=== PATIENT | male | born 1955 | race Caucasian/White ===

== ENCOUNTER 2018-12-05 22:21 | Inpatient (IN) | payer SELFPAY ==
[~2018-12-05] VITALS: Ht 172.7 cm; Wt 62.6 kg
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
[2018-12-05] MEDS ORDERED: ALBUTEROL/IPRATROPIUM 3 ML NEB NEB ONE (22:25)
[2018-12-05] MEDS ORDERED: methylPREDNIS SUCC 125 MG/2ML IVP ONE (22:25)
[2018-12-05 22:43] LABS: PLATELET COUNT, AUTOMATED 406 K/uL (150-450)
[2018-12-05] MEDS ORDERED: ALBUTEROL 2.5 MG/3 ML NEB NEB ONE (23:05)
[2018-12-05] MEDS ORDERED: BENZONATATE 100 MG CAP PO ONE (23:05)
--- NOTE | 2018-12-05 23:41 | RADIOLOGY IMAGING REPORT ---
FACILITY: [facility] PATIENT NAME: Tommy Kan : 1955 MR: [id number] V: [id number] EXAM DATE: ORDERING PHYSICIAN: CRISTINA COOK TECHNOLOGIST: Location: [facility] Patient: Tommy Kan : 1955 Visit/Account:[id number] Date of Sevice: 12/05/2018 EXAMINATION: Chest radiograph HISTORY: Cough, shortness of breath COMPARISON: None. FINDINGS: 2 frontal views obtained. Lines/tubes: None. Cardiomediastinal silhouette: Normal. Lungs/pleura: Mild lower lung bilateral central groundglass opacification. Suggestion of interlobula r septal thickening in the bilateral mid to lower lungs. Bony structures/chest wall: No significant abnormality. IMPRESSION: Nonspecific lower lung bilateral mild groundglass opacification with suggestion of bilateral interlob ular septal thickening. These findings may reflect mild pulmonary edema. These findings could alterna tively represent an atypical infectious process such as a viral pneumonia. Report Dictated By: Timmy Sanders MD at 12/05/2018 11:36 PM Report E-Signed By: Timmy Sanders MD at 12/05/2018 11:38 PM WSN:[id number]
[2018-12-05] MEDS ORDERED: IOPAMIDOL 76% 50 ML INFUS BTL 100 ML ONE (23:55)
[2018-12-05] MEDS ORDERED: NS(*) 0.9% 50 ML BAG 50 ML ONE (23:55)
--- NOTE | 2018-12-06 01:21 | EKG ---
FACILITY: [facility] - [place] PATIENT NAME: KARINE DELGADO : [id number] MR: [id number] V: [id number] EXAM DATE: ORDERING PHYSICIAN: CRISTINA COOK TECHNOLOGIST: VINICIUS Cordoba Reason : Blood Pressure : / mmHG Vent. Rate : 119 BPM Atrial Rate : 119 BPM P-R Int : 114 ms QRS Dur : 090 ms QT Int : 318 ms P-R-T Axes : 086 061 079 degrees QTc Int : 447 ms Sinus tachycardia Possible biatrial enlargement No previous ECGs available Confirmed by WYATT JOHNSON ([id number]) on 12/06/2018 3:11:33 AM Referred By: Confirmed By:WYATT JOHNSON
--- NOTE | 2018-12-06 01:47 | RADIOLOGY IMAGING REPORT ---
FACILITY: [facility] - [place] PATIENT NAME: Tommy Kan : 1955 MR: [id number] V: [id number] EXAM DATE: ORDERING PHYSICIAN: CRISTINA COOK TECHNOLOGIST: Location: [facility] Patient: Tommy Kan : 1955 Visit/Account:[id number] Date of Sevice: 12/05/2018 CT angiogram of the chest: Indication: Dyspnea. Elevated d-dimer. Technique: Helical CT was performed through the chest following IV contrast enhancement with 75 cc of Isovue 370. Multiplanar reconstructions and MIP images are reviewed. One of the following dose optimization techniques was utilized in the performance of this exam: Autom ated exposure control; adjustment of the mA and/or kV according to the patient's size; or use of an i terative reconstruction technique. Specific details can be referenced in the facility's radiology CT exam operational policy. Comparison: Plain radiographs of the chest from 12/05/2018. Pulmonary arteries: There is uniform contrast enhancement. There are no signs of pulmonary emboli. Aorta and great vessels: There is uniform contrast enhancement. There are no signs of dissection, ane urysm, or significant atherosclerosis. Heart and pericardial soft tissues: Unremarkable. Mediastinal soft tissues: A few small calcified lymph nodes are present in the left hilum, compatible with chronic granulomatous disease. There are no signs of mediastinal mass or fluid. There appears t o be a small hiatal hernia. Lung beltran: There are diffuse changes of emphysema, with upper lobe predominance. Small peripheral o pacities are present in both lower lobes. The appearance is nonspecific and may represent acute infla mmation or chronic fibrosis. Pleural spaces: No evidence of effusion, focal pleural thickening, calcification, or pneumothorax. Skeletal structures: There is moderate degenerative disc disease and osteoarthritis in the thoracic s pine. There are severe degenerative changes in the lower cervical spine. Upper abdomen: Unremarkable. IMPRESSION: No evidence of pulmonary emboli. There are diffuse emphysematous changes in both lungs. T here are small nonspecific parenchymal opacities at both bases, which could represent acute inflammat ion or chronic fibrosis. Report Dictated By: David Chavez MD at 12/06/2018 1:32 AM Report E-Signed By: David Chavez MD at 12/06/2018 1:42 AM WSN:[id number]
[2018-12-06] MEDS ORDERED: predniSONE 20 MG TAB PO ONE (02:20)
[2018-12-06] MEDS ORDERED: ALBUTEROL 8 GM INHALER INH ONE (02:20)
[2018-12-06] MEDS ORDERED: BENZONATATE 100 MG CAP PO ONE (02:20)
[2018-12-06] MEDS ORDERED: BENZ100C4 PO (02:25)
[2018-12-06] MEDS ORDERED: ALB6.7R INH (02:25)
[2018-12-06] MEDS ORDERED: PRED20TA6 PO (02:25)
[2018-12-06] MEDS ORDERED: ROBC PO (02:25)
[2018-12-06 03:47] VITALS: BP 120/103
[2018-12-06] MEDS ORDERED: CETI10CA8 PO (03:52)
[2018-12-06] MEDS ORDERED: LISI-362 PO (03:53)
[2018-12-06] MEDS ORDERED: LEVOFLOXACIN/D5W 750 MG/150 ML 150 ML IVPB SCH (04:45)
[2018-12-06] MEDS ORDERED: ACETAMINOPHEN 325 MG TAB PO PRN (04:45)
[2018-12-06] MEDS ORDERED: NS(*) 0.9% 1000 ML BAG 1,000 ML IV PRN (04:45)
[2018-12-06] MEDS ORDERED: ALBUTEROL 2.5 MG/3 ML NEB NEB PRN (04:45)
[2018-12-06] MEDS: ALBUTEROL/IPRATROPIUM 3 ML NEB NEB SCH ×4 (05:09→17:01)
--- NOTE | 2018-12-06 05:11 | History & Physical ---
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 He reports onset of cough, wheezing, dyspnea over the past 24 hours. He drove from [facility] to [place], [place] today. Upon arriving in [place] he noted significant increase in his symptoms, especially dyspnea and intolerance of activities. He denied any CP or palpitations. He did not have any leg swelling or pain. He was evaluated in the [facility] ER and found to be hypoxic with room air oxygen saturations in 75% range. His WBC count is slightly elevated. His d-dimer is also elevated. His CT pulmonary angiogram is negative for PE, but did show emphysematous changes and possible acute inflammatory/bronchitis findings. His influenza screening is negative. He was recommended for admission. History Problems: (1) HTN (hypertension) Status: Chronic (2) Cerebral palsy Status: Chronic (3) Seasonal allergies Status: Chronic (4) Smoking Status: Chronic Comment: Quit 6 months ago. Home Meds Active Scripts Guaifenesin/Codeine (GUAIFENESIN-CODEINE SYRUP) 5 Ml Syrp, 5 ML PO Q6H PRN for COUGH, #120 ML 0 Refills Prov:CRISTINA COOK MD 12/06/18 Benzonatate 100 Mg Cap (TESSALON PERLE 100 MG CAP) 100 Mg Capsule, 100 MG PO TID PRN for COUGH, #15 CAP 0 Refills Prov:CRISTINA COOK MD 12/06/18 Prednisone (PREDNISONE) 20 Mg Tablet, 60 MG PO QDAY, #12 TAB 0 Refills Prov:CRISTINA COOK MD 12/06/18 Albuterol Sulfate (PROVENTIL HFA) 6.7 Gm Inh, 2 PUFF INH Q4H PRN for SHORTNESS OF BREATH, #1 INH 0 Refills Prov:CRISTINA COOK MD 12/06/18 Reported Medications Lisinopril (LISINOPRIL) 10 Mg Tablet, 10 MG PO QDAY, TAB 12/06/18 Cetirizine Hcl (ZYRTEC) 10 Mg Capsule, 10 MG PO QDAY, CAPSULE 12/06/18 Allergies: Coded Allergies: No Known Drug Allergies (Unverified , 12/06/18) Other Social/Family 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 He reports his primary relatives were all healthy. Hx Smoking: Yes (quick smoking 6 months ago) Smoking Status: Former Smoker (quit 6 months ago) Exposure to Second Hand Smoke?: Yes Hx Alcohol Use: No Hx Substance Use Disorder: No History of IV Drug Use: No Review of Systems Constitutional: No Fever, No Chills Neurological: No Syncope, No Confusion Eyes: No Vision Change, No Loss of Vision ENT: Sinus Congestion; No Hearing Loss Cardiovascular: No Chest Pain, No Palpitations Respiratory: Shortness of Breath, Cough, Wheezing Gastrointestinal: No Nausea, No Vomiting, No Diarrhea, No Hematemesis, No Hematochezia, No Melena, No Abdominal Pain Genitourinary: No Dysuria, No Hematuria Exam Vital Signs Vital Signs Date Time Temp Pulse Resp B/P (MAP) Pulse Ox O2 Delivery O2 Flow Rate FiO2 12/06/18 04:35 75 12/06/18 03:47 91 20 120/103 (109) Nasal Cannula 5.0 General Appearance: Alert, Awake Neuro: Other (some increased tone in all of his extremities/he also has resting tremor and some choreiform type movements with his trunk) Eyes: PERRLA ENT: Oropharynx Clear Neck: No Masses Cardiovascular: Regular Rate and Rhythm, No Edema, No JVD Respiratory: Other (scattered rhonchi with soft expiratory wheezes bilaterally) Chest: No Tenderness GI: Abd Soft and Non-Tender : No CVA Tenderness Extremities: Warm, Perfused Psych: Alert & Oriented X3 Medical Decision Making Data Points Result Diagram: 12/05/18220412/05/182204 Item Value Date Time Albumin 4.2 g/dl 12/05/182204 Total Protein 7.5 g/dl 12/05/182204 Troponin I < 0.012 ng/ml 12/05/182204 Alkaline Phosphatase 89 U/L 12/05/182204 Alanine Aminotransferase (ALT/SGPT) 21 U/L 12/05/182204 Aspartate Amino Transf (AST/SGOT) 26 U/L 12/05/182204 Total Bilirubin 0.3 mg/dl 12/05/182204 Calcium Level 9.1 mg/dl 12/05/182204 D-Dimer Quantitative (PE/DVT) 4.93 ug/ml H 12/05/182204 Influenza Virus Type B (PCR) Negative 12/05/182307 Influenza Virus Type A (PCR) Negative 12/05/182307 EKG / Imaging EKG Interpretation PATIENT NAME: TOMMY DELGADO : [id number] MR: [id number] V: [id number] EXAM DATE: ORDERING PHYSICIAN: CRISTINA COOK TECHNOLOGIST: PANTIER Test Reason : Blood Pressure : / mmHG Vent. Rate : 119 BPM Atrial Rate : 119 BPM P-R Int : 114 ms QRS Dur : 090 ms QT Int : 318 ms P-R-T Axes : 086 061 079 degrees QTc Int : 447 ms Sinus tachycardia Possible biatrial enlargement No previous ECGs available Confirmed by WYATT JOHNSON ([id number]) on 12/06/2018 3:11:33 AM Referred By: Confirmed By:WYATT JOHNSON Imaging PATIENT NAME: Tommy Delgado : 1955 MR: [id number] V: [id number] EXAM DATE: [id number] ORDERING PHYSICIAN: CRISTINA COOK TECHNOLOGIST: Location: [facility] [place] Patient: Tommy Delgado : 1955 Visit/Account:[id number] Date of Sevice: 12/05/2018 CT angiogram of the chest: Indication: Dyspnea. Elevated d-dimer. Technique: Helical CT was performed through the chest following IV contrast enhancement with 75 cc of Isovue 370. Multiplanar reconstructions and MIP images are reviewed. One of the following dose optimization techniques was utilized in the performance of this exam: Automated exposure control; adjustment of the mA and/or kV according to the patient's size; or use of an iterative reconstruction technique. Specific details can be referenced in the facility's radiology CT exam operational policy. Comparison: Plain radiographs of the chest from 12/05/2018. Pulmonary arteries: There is uniform contrast enhancement. There are no signs of pulmonary emboli. Aorta and great vessels: There is uniform contrast enhancement. There are no signs of dissection, aneurysm, or significant atherosclerosis. Heart and pericardial soft tissues: Unremarkable. Mediastinal soft tissues: A few small calcified lymph nodes are present in the left hilum, compatible with chronic granulomatous disease. There are no signs of mediastinal mass or fluid. There appears to be a small hiatal hernia. Lung beltran: There are diffuse changes of emphysema, with upper lobe predominance. Small peripheral opacities are present in both lower lobes. The appearance is nonspecific and may represent acute inflammation or chronic fibrosis. Pleural spaces: No evidence of effusion, focal pleural thickening, calcification, or pneumothorax. Skeletal structures: There is moderate degenerative disc disease and osteoarthritis in the thoracic spine. There are severe degenerative changes in the lower cervical spine. Upper abdomen: Unremarkable. IMPRESSION: No evidence of pulmonary emboli. There are diffuse emphysematous changes in both lungs. There are small nonspecific parenchymal opacities at both bases, which could represent acute inflammation or chronic fibrosis. Report Dictated By: David Chavez MD at 12/06/2018 1:32 AM Report E-Signed By: David Chavez MD at 12/06/2018 1:42 AM WSN:[id number] Assessment and Plan Problems: (1) Hypoxia Status: Acute Assessment & Plan: It appears he has rather significant underlying COPD/emphysema, which has not been diagnosed up to this point. Almost certainly due to his history of smoking. He is quite hypoxic and requiring 5L supplemental oxygen. The altitude in [place], [place] ([address]) has exacerbated this as well. Will place on IV antibiotics, steroids and give respiratory treatments/supplemental oxygen. 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 (2) Bronchitis Status: Acute Assessment & Plan: Will cover with IV Levaquin 750mg daily. (3) COPD (chronic obstructive pulmonary disease) Status: Chronic Assessment & Plan: Emphysematous changes seen on CT scan. Almost certainly due to smoking history. He will be placed on IV Solu-Medrol, DuoNeb, and albuterol. He will also be given supplemental oxygen as needed. (4) HTN (hypertension) Status: Chronic Assessment & Plan: He has been on lisinopril up to this point. His creatinine is slightly elevated. Will hold the lisinopril and watch his BPs - resume therapy as needed. Watch lab as well. Venous Thromboembolism Antithrombotics Is Pt On Any Antithrombotics?: Yes Exam Sepsis Risk: No Definite Risk WYATT JOHNSON MD Dec 06, 2018 05:11
[2018-12-06 06:54] VITALS: BP 118/75
[2018-12-06 07:06] LABS: PLATELET COUNT, AUTOMATED 291 K/uL (150-450)
[2018-12-06] MEDS: ENOXAPARIN 40 MG/0.4ML SYR SC SCH (09:00)
[2018-12-06] MEDS: methylPREDNIS SUCC 125 MG/2ML IVP SCH ×2 (09:25→17:21)
--- NOTE | 2018-12-06 09:54 | Hospitalist Progress Note ---
Subjective Progress Notes Subjective He was admitted with hypoxia. He reports much improvement in his symptoms this morning. However, he is still requiring 4-5L of oxygen. Patient Complains of: Cardiovascular: No: Chest Pain Respiratory: No: Shortness of Breath Physical Exam Vital Signs Date Time Temp Pulse Resp B/P (MAP) Pulse Ox O2 Delivery O2 Flow Rate FiO2 12/06/18 09:16 91 Nasal Cannula 3.5 12/06/18 09:16 112 18 12/06/18 06:54 98.5 118/75 (89) General Appearance: Alert, Awake, No Acute Distress, Afebrile Neuro: No Gross deficits Cardiovascular: Regular Rate and Rhythm Respiratory: No Respiratory Distress, Other (mild expiratory wheezes present) GI: Soft and Non-Tender Extremities: Warm, Perfused; No Edema Psych: Alert & Oriented X3, Appropriate Mood & Affect Result Diagram: 12/06/1859 12/06/1859 Assessment and Plan Problems: (1) Hypoxia Status: Acute Assessment & Plan: It appears he has rather significant underlying COPD/emphysema, which has not been diagnosed up to this point. Almost certainly due to his history of smoking. He is quite hypoxic and requiring 5L supplemental oxygen. The altitude in [place], [place] ([address]) has exacerbated this as well. Will place on IV antibiotics, steroids and give respiratory treatments/supplemental oxygen. 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 (2) Bronchitis Status: Acute Assessment & Plan: Will cover with IV Levaquin 750mg daily. (3) COPD (chronic obstructive pulmonary disease) Status: Chronic Assessment & Plan: Emphysematous changes seen on CT scan. Almost certainly due to smoking history. He will be placed on IV Solu-Medrol, DuoNeb, and albuterol. He will also be given supplemental oxygen as needed. (4) HTN (hypertension) Status: Chronic Assessment & Plan: He has been on lisinopril up to this point. His creatinine was slightly elevated. Will hold the lisinopril and watch his BPs - resume therapy as needed. Watch lab as well. (5) Acute kidney injury Status: Acute Assessment & Plan: His creatinine was 1.3 upon admission. He was given IV hydration overnight. His creatinine has improved at 0.9 this morning. Exam Sepsis Risk: No Definite Risk Problem Qualifiers (1) HTN (hypertension): Hypertension type: essential hypertension Qualified Codes: I10 - Essential (primary) hypertension THELMA CHILDERS Dec 06, 2018 09:54
[2018-12-06 10:26] VITALS: Ht 172.7 cm; Wt 62.6 kg
[2018-12-06 10:57] VITALS: BP 111/67
[2018-12-06 14:40] VITALS: BP 112/69
[2018-12-06] MEDS ORDERED: LISI-351 PO (15:18)
[2018-12-06 18:43] VITALS: BP 107/55
[2018-12-07] MEDS: methylPREDNIS SUCC 125 MG/2ML IVP SCH ×2 (00:40→09:03)
[2018-12-07 03:31] VITALS: BP 102/61
[2018-12-07] MEDS: ALBUTEROL/IPRATROPIUM 3 ML NEB NEB SCH ×2 (05:48→09:27)
[2018-12-07] MEDS ORDERED: LEVOFLOXACIN/D5W 750 MG/150 ML 150 ML IVPB SCH (06:00)
[2018-12-07 07:37] VITALS: BP 113/79
[2018-12-07] MEDS ORDERED: PRED20TA6 PO (07:52)
[2018-12-07] MEDS ORDERED: LEVO750T27 PO (07:52)
[2018-12-07] MEDS: ENOXAPARIN 40 MG/0.4ML SYR SC SCH (09:00)
--- NOTE | 2018-12-07 09:48 | Hospitalist Depart ---
Discharge Summary Reason for Hosp/Final Diag: (1) Hypoxia Status: Acute Hospital Course & Plan: It appears he has rather significant underlying COPD/emphysema, which has not been diagnosed up to this point. Almost certainly due to his history of smoking. He was quite hypoxic and requiring 5L supplemental oxygen. Now he is on RA keeping saturations >88%. (2) Bronchitis Status: Acute Hospital Course & Plan: He presented with a cough and hypoxia. He was started on IV Levofloxacin and methylprednisolone. His cough is improving and the hypoxia resolved. He will go home on prednisone and oral levofloxacin. (3) COPD (chronic obstructive pulmonary disease) Status: Chronic Hospital Course & Plan: Emphysematous changes seen on CT scan. Almost certainly due to smoking history. See above. (4) HTN (hypertension) Status: Chronic Hospital Course & Plan: His creatinine was slightly elevated, which has improved with holding lisinopril/hctz. BP wnl. It can be restarted tomorrow. (5) Acute kidney injury Status: Resolved Hospital Course & Plan: His creatinine was 1.3 upon admission. See above. His creatinine has improved at 0.9. Departure Weight (Pounds): 138 Result Diagram: 12/06/1859 12/06/18658 Item Value Date Time Creatinine 1.30 mg/dl H 12/05/182204 Creatinine 0.90 mg/dl 12/06/18658 Blood Urea Nitrogen 28 mg/dl H 12/06/18658 Blood Urea Nitrogen 27 mg/dl H 12/05/182204 Sodium Level 138 mmol/L 12/05/182204 Sodium Level 133 mmol/L L 12/06/18658 Potassium Level 4.2 mmol/L 12/06/18658 Potassium Level 4.0 mmol/L 12/05/182204 Carbon Dioxide Level 31 mmol/L H 12/05/182204 Carbon Dioxide Level 27 mmol/L 12/06/18658 Troponin I < 0.012 ng/ml 12/05/182204 Total Bilirubin 0.3 mg/dl 12/05/182204 Aspartate Amino Transf (AST/SGOT) 26 U/L 12/05/182204 Alanine Aminotransferase (ALT/SGPT) 21 U/L 12/05/182204 Alkaline Phosphatase 89 U/L 12/05/182204 Total Bilirubin 0.3 mg/dl 12/06/18658 Aspartate Amino Transf (AST/SGOT) 20 U/L 12/06/18658 Alanine Aminotransferase (ALT/SGPT) 24 U/L 12/06/18658 Alkaline Phosphatase 63 U/L 12/06/18658 Neutrophils (%) (Auto) 80.3 % H 12/05/182204 Neutrophils (%) (Auto) 96.6 % H 12/06/18658 Lymphocytes (%) (Auto) 12.5 % L 12/05/182204 Lymphocytes (%) (Auto) 1.5 % L 12/06/18658 Influenza Virus Type A (PCR) Negative 12/05/182307 Influenza Virus Type B (PCR) Negative 12/05/182307 D-Dimer Quantitative (PE/DVT) 4.93 ug/ml H 12/05/182204 Imaging Chest CTA - No evidence of pulmonary emboli. There are diffuse emphysematous changes in both lungs. There are small nonspecific parenchymal opacities at both bases, which could represent acute inflammation or chronic fibrosis. CXR - Nonspecific lower lung bilateral mild groundglass opacification with suggestion of bilateral interlobular septal thickening. These findings may reflect mild pulmonary edema. These findings could alternatively represent an atypical infectious process such as a viral pneumonia. EKG Vent. Rate : 119 BPM Atrial Rate : 119 BPM P-R Int : 114 ms QRS Dur : 090 ms QT Int : 318 ms P-R-T Axes : 086 061 079 degrees QTc Int : 447 ms Sinus tachycardia Possible biatrial enlargement No previous ECGs available Confirmed by WYATT JOHNSON ([id number]) on 12/06/2018 3:11:33 AM Condition: Improved Discharge: Home Discharge Instructions Home Meds Active Scripts Prednisone (PREDNISONE) 20 Mg Tablet, 40 MG PO QDAY, #10 TAB Prov:JESSICA HERNANDEZ MD 12/07/18 Levofloxacin 750 Mg Tab (LEVOFLOXACIN 750 MG TAB) 750 Mg Tablet, 750 MG PO DA LOYDA, #3 TAB Prov:JESSICA HERNANDEZ MD 12/07/18 Guaifenesin/Codeine (GUAIFENESIN-CODEINE SYRUP) 5 Ml Syrp, 5 ML PO Q6H PRN for COUGH, #120 ML 0 Refills Prov:CRISTINA COOK MD 12/06/18 Benzonatate 100 Mg Cap (TESSALON PERLE 100 MG CAP) 100 Mg Capsule, 100 MG PO TID PRN for COUGH, #15 CAP 0 Refills Prov:CRISTINA COOK MD 12/06/18 Albuterol Sulfate (PROVENTIL HFA) 6.7 Gm Inh, 2 PUFF INH Q4H PRN for SHORTNESS OF BREATH, #1 INH 0 Refills Prov:CRISTINA COOK MD 12/06/18 Reported Medications Lisinopril/Hydrochlorothiazide (LISINOPRIL-HCTZ 10-12.5 MG TAB) 1 Each Tablet, 1 EACH PO QDAY 12/06/18 Cetirizine Hcl (ZYRTEC) 10 Mg Capsule, 10 MG PO QDAY, CAPSULE 12/06/18 Discontinued Reported Medications Lisinopril (LISINOPRIL) 10 Mg Tablet, 10 MG PO QDAY, TAB 12/06/18 Discontinued Scripts Prednisone (PREDNISONE) 20 Mg Tablet, 60 MG PO QDAY, #12 TAB 0 Refills Prov:CRISTINA COOK MD 12/06/18 Diet: Regular Activity: As Tolerated Special Instructions: Go to the ER for fevers, SOB. Venous Thromboembolism Antithrombotics Is Pt On Any Antithrombotics?: Yes Problem Qualifiers (1) HTN (hypertension): Hypertension type: essential hypertension Qualified Codes: I10 - Essential (primary) hypertension JESSICA HERNANDEZ MD Dec 07, 2018 09:47
[2018-12-07] MEDS ORDERED: ALB6.7R INH (10:26)
[2018-12-07] MEDS ORDERED: BENZ100C4 PO (10:26)
== END 2018-12-07 10:35 | disposition home or self-care (01) | DRG 191 ==
LOC: ER 22:23 → MED 12-06 03:22
PROVIDERS: ADMIT Internal Medicine; ATTEND Internal Medicine
DX: J42 Unspecified chronic bronchitis (principal); N17.9 Acute kidney failure, unspecified; I10 Essential (primary) hypertension; R09.02 Hypoxemia; G80.9 Cerebral palsy, unspecified; J43.9 Emphysema, unspecified; Z87.891 Personal history of nicotine dependence
CPT/HCPCS: 36415; 71045; 71275; 82040; 82247; 82310; 82374; 82435; 82565; 82947; 84075; 84132; 84155; 84295; 84450; 84460; 84484; 84520; 85025; 85379; 87502; 93005; 96374; 99285; J1956; J2930; J3535; J7050; J7512; J7613; Q9967